=== PATIENT | male | born 1955 | race Caucasian/White ===

== ENCOUNTER 2018-08-22 12:07 | Emergency (ER) | payer SELFPAY ==
[2018-08-22 12:11] VITALS: BP 128/82
--- NOTE | 2018-08-22 12:29 | EDPHY ---
H & P Stated Complaint: large splinter in L arm Time Seen by Provider: 08/22/18 12:18 HPI/ROS: HPI: This is a 63-year-old male who presents Chief Complaint: Pressurized wood splinter and left forearm Location: Left forearm Quality: Foreign body Duration: Prior to arrival Signs and Symptoms: No bleeding, no radiation, no numbness, no weakness, no tingling, no incontinence, no decreased range of motion, no swelling, no pain, no fever Timing: Acute Severity: Moderate Context: Patient is right-hand dominant, building a deck with pressurized would when he accidentally walked by a pile of wood and hit it with his left forearm. He reports he immediately felt a piece of wood go into his skin. He tried to pull it out but was already "deep." Denies decreased range of motion, bleeding, discharge, pain. Reports tetanus up-to-date. Modifying Factors: None Comment: ROS: A comprehensive 10 system review of systems is otherwise negative aside from elements mentioned in the history of present illness. MEDICAL/SURGICAL/SOCIAL HISTORY: Medical history: Generally healthy. Does not take any regular medications. Surgical history: left bicep tenodesis Social history: Nonsmoker. Retired. CONSTITUTIONAL: Physically fit adult white male, awake and alert, no obvious distress HEENT: Atraumatic and normocephalic, PERRL, EOMI. Nares patent; no rhinorrhea; no nasal mucosal edema. Tympanic membranes clear. Oropharynx clear, no exudate and moist pink mucosa. Airway patent. No lymphadenopathy. No meningismus. Cardiovascular: Normal S1/S2, regular rate, regular rhythm, without murmur rub or gallop. PULMONARY/CHEST: Symmetrical and nontender. Clear to auscultation bilaterally. Good air movement. No accessory muscle usage. ABDOMEN: Soft, nondistended, nontender, no rebound, no guarding, no peritoneal signs, no masses or organomegaly. No CVAT. EXTREMITIES: 2/2 pulses, strength 5/5, no deformities, no clubbing, no cyanosis or edema. NEUROLOGICAL: no focal neuro deficits. GCS 15. SKIN: Warm and dry, well 3 in subcutaneous foreign body in the left forearm just inferior to the antecubital fossa-entry point noted with dried blood. Good capillary refill. Source: Patient Exam Limitations: No limitations - Personal History Current Tetanus Diphtheria and Acellular Pertussis (TDAP): Yes - Medical/Surgical History Hx Asthma: No Hx Chronic Respiratory Disease: No Hx Diabetes: No Hx Cardiac Disease: No Hx Renal Disease: No Hx Cirrhosis: No Hx Alcoholism: No Hx HIV/AIDS: No Hx Splenectomy or Spleen Trauma: No Other PMH: denies - Social History Smoking Status: Never smoked Constitutional: Initial Vital Signs Temperature (C) 37 C 08/22/18 12:09 Heart Rate 65 08/22/18 12:09 Respiratory Rate 18 08/22/18 12:09 Blood Pressure 128/82 H 08/22/18 12:09 O2 Sat (%) 97 08/22/18 12:09 O2 Delivery Mode Room Air Allergies/Adverse Reactions: No Known Allergies Allergy (Unverified 08/22/18 12:11) Home Medications: Medication Instructions Recorded Cephalexin [Keflex (*)] 500 mg PO TID #21 cap 08/22/18 Medical Decision Making Procedures: Procedure: Foreign body removal from left forearm. Anesthesia: 6 cc of 1% lidocaine without epinephrine After verbal consent was obtained, the 3 inch splinter was removed from left forearm. The foreign body was removed manually with forceps under direct visualization. There were no complications. The procedure was performed by myself. ED Course/Re-evaluation: Vital signs reviewed and stable upon arrival. Tetanus is up-to-date. Local anesthesia provided and large piece of wood removed intact Irrigated copiously, bacitracin clean sterile dressing applied Given Keflex and prescription for same No signs of neurovascular compromise/tenting of skin/compartment syndrome/ extremities and joints examined above and below area of concern and are neurovascularly intact/septic arthritis. This patient was seen under the supervision of my secondary supervising physician. I evaluated and cared for this patient with attending. Differential Diagnosis: Differential diagnosis includes but is not limited to nerve injury, muscle injury, ligament injury, foreign body, cellulitis, septic arthritis. Departure - Departure Disposition: Home, Routine, Self-Care Clinical Impression: Foreign body in left forearm Qualifiers: Encounter type: initial encounter Qualified Code(s): S50.852A - Superficial foreign body of left forearm, initial encounter Splinter of upper extremity Qualifiers: Encounter type: initial encounter Laterality: left Qualified Code(s): S40.852A - Superficial foreign body of left upper arm, initial encounter Condition: Good Instructions: Soft Tissue Foreign Body (ED) Additional Instructions: Keep the dressing dry and in place for 48 hours. After 48 hours, you may remove the dressing; wash the site daily with mild soap and water; then pat dry. Apply topical antibiotic ointment and keep covered with sterile dressing until fully healed. Do not soak in a bathtub or go swimming until fully healed. Take Tylenol 650 mg every 4 hours and/or Ibuprofen 600 mg every 8 hours with food as needed for pain. Take antibiotic as directed. Do not skip a dose. Return to the ER immediately if you experience redness, red streaks, have fevers /chills, flu like symptoms, limited range of motion, or any other symptoms that concern you. Referrals: Micah Sagastume MD [Medical Doctor] - As per Instructions Prescriptions: Cephalexin [Keflex (*)] 500 mg PO TID #21 cap
[2018-08-22] MEDS ORDERED: CEPHALEXIN 500 MG CAP PO ONE (12:55)
== END 2018-08-22 13:08 | disposition home or self-care (01) ==
DX: S50.852A Superficial foreign body of left forearm, initial encounter (principal); S40.852A Superficial foreign body of left upper arm, initial encounter; W26.8XXA Contact with other sharp object(s), not elsewhere classified, initial encounter